=== PATIENT | female | born 1970 | race Caucasian/White ===

== ENCOUNTER 2017-12-14 12:49 | Outpatient (CLI) | payer MEDICAID | END 2017-12-14 23:59 | disposition home or self-care (01) | LOC: CARD DIAG 12:49 | PROVIDERS: ATTEND Physician Assistant | DX: I10 Essential (primary) hypertension (principal); I34.1 Nonrheumatic mitral (valve) prolapse; I34.8 Other nonrheumatic mitral valve disorders; R00.2 Palpitations; R01.1 Cardiac murmur, unspecified | CPT/HCPCS: 93306 ==